=== PATIENT | male | born 1995 | race Caucasian/White ===

== ENCOUNTER 2017-05-31 18:45 | Emergency (ER) | payer OTHER ==
--- NOTE | 2017-05-31 19:13 | PDOC ---
History of Present Illness - General History Source: Patient Exam Limitations: No Limitations - History of Present Illness Initial Comments: 05/31/17 20:01 Patient is a 21 year old male with no significant past medical history who present to the ED with complaints of dysuria that began yesterday morning. Patient reports waking up yesterday and noticed dysuria that continued until today. Patient reports dysuria feels like sharp and is rated a 8/10 in intensity. He reports walking increases pain to tip of penis. Patient reports discharge of fluid from penis that he states is light yellow in coloration. He reports urinary secondary to dysuria, reporting he goes at least once per hour. Patient is sexually active and states his last sexual encounter was 5 days ago and was unprotected. Denies hematuria,diarrhea, constipation. Denies fever, chills. Denies nausea, vomiting. Denies any other symptoms. Allergies: None Social history: No smoking. Social drinker. No illicit drugs. Surgical history: None PMD: None Review of Symptoms. General: No fevers or chills, no weakness, no weight loss HEENT: No change in vision. No sore throat, No ear pain CardioVascular: No chest pain or shortness of breath Respiratory:No cough, or wheezing. Gastrointestinal: no nausea, vomiting, diarrhea or constipation, No rectal bleeding Genitourinary: +Dysuria. +Urinary frequency. No hematuria Musculoskeletal: No joint or muscle pain or swelling Neurologic: No headache, vertigo, dizziness or loss of consciousness Psychiatric: nor depression Skin: No rashes or easy bruising Endocrine: no increased thirst or abnormal weight change Allergic: no skin or latex allergy All other systems reviewed and normal Basic Physical Exam GENERAL: The patient is awake, alert, and fully oriented, in no acute distress. HEAD: Normal with no signs of trauma. EYES: Pupils equal, round and reactive to light, extraocular movements intact, sclera anicteric, conjunctiva clear. EXTREMITIES: Normal range of motion, no edema. GASTROINTESTINAL: +Testicle distended bilaterally. +Two small abrasions on tip of penis. +Small amount of blood and purulent leaking from tip of penis. Normal circumcised penis. Normal premaster reflex. No testicular tenderness or masses on palpation of the testicles. . Normal Lye. Bilateral non tender groin lymphadenopathy. NEUROLOGICAL: Normal speech, normal gait. PSYCH: Normal mood, normal affect. SKIN: Warm, Dry, normal turgor, no rashes or lesions noted. <Dariel Troncoso - Last Filed: 05/31/17 20:01> - General History Source: Patient Exam Limitations: No Limitations - History of Present Illness Initial Comments: 05/31/17 21:24 A portion of this note was documented by scribe services under my direction. I have reviewed the details of the note, within reason, and agree with the documentation. The case summary and management plan written by me. Assessment and plan: This is a 21-year-old male who comes in complaining of penile discomfort and dysuria. Patient on exam had penile discharge and some groin lymphadenopathy. Patient has presumptive STDs as he is sexually active with no protection. Patient had syphilis sent and HIV testing done. Patient was treated for chlamydia and gonorrhea. Post discharge patient's HIV test came back presumptive positive Patient was called and given an appointment with Dr. Ian Lopez for 9 AM Sunday, June 04 at the [facility]. The [facility] was also notified that the patient was given an appointment. A message was left at the [facility] regarding this patient and the appointment. <Cm Herrera I - Last Filed: 05/31/17 21:26> - General Chief Complaint: Urinary Problem Stated Complaint: PAINFUL URINATION Time Seen by Provider: 05/31/17 19:08 Past History <Dariel Troncoso - Last Filed: 05/31/17 20:01> - Immunization History Immunization Up to Date: Yes - Suicide/Smoking/Psychosocial Hx Smoking History: Never smoked Hx Alcohol Use: Yes (Occasional) Drug/Substance Use Hx: Yes (Occasional marijuana) Substance Use Type: Marijuana <Cm Herrera I - Last Filed: 05/31/17 21:26> - Past Medical History Allergies/Adverse Reactions: Allergies Allergy/AdvReac Type Severity Reaction Status Date / Time No Known Allergies Allergy Verified 05/31/17 19:00 Home Medications: Ambulatory Orders NK [No Known Home Medication] 05/31/17 *Physical Exam - Vital Signs Last Vital Signs Temp Pulse Resp BP Pulse Ox 99.7 F H 89 15 150/92 100 05/31/17 18:51 05/31/17 18:51 05/31/17 18:51 05/31/17 18:51 05/31/17 18:51 <Dariel Troncoso - Last Filed: 05/31/17 20:01> - Vital Signs Last Vital Signs Temp Pulse Resp BP Pulse Ox 99.7 F H 89 15 150/92 100 05/31/17 18:51 05/31/17 18:51 05/31/17 18:51 05/31/17 18:51 05/31/17 18:51 <Cm Herrera I - Last Filed: 05/31/17 21:26> ED Treatment Course - ADDITIONAL ORDERS Additional order review: Laboratory Results 05/31/17 19:20 Urine Color Yellow Urine Appearance Hazy Urine pH 6.0 Ur Specific [place] 1.020 Urine Protein Trace Urine Glucose (UA) Negative Urine Ketones Trace Urine Blood 2+ H Urine Nitrite Negative Urine Bilirubin Negative Urine Urobilinogen 0.2 Urine RBC 2-5 Urine WBC 15-30 Urine Bacteria Few - Medications Given in the ED: ED Medications Discontinued Medications Generic Name Dose Route Start Last Admin Trade Name Ras PRN Reason Stop Dose Admin Azithromycin 1 gm 05/31/17 19:44 05/31/17 19:54 Zithromax - PO 05/31/17 19:45 1 gm ONCE ONE Administration Ceftriaxone Sodium 500 mg 05/31/17 19:45 05/31/17 19:58 Rocephin - IM 05/31/17 19:46 500 mg ONCE ONE Administration <Dariel Troncoso - Last Filed: 05/31/17 20:01> *DC/Admit/Observation/Transfer - Attestations Scribe Attestion: 05/31/17 20:02 Documentation prepared by Dariel Troncoso, acting as medical donation professional for Cm Herrera MD/DO. <Dariel Troncoso - Last Filed: 05/31/17 20:01> - Discharge Dispostion Admit: No <Cm Herrera I - Last Filed: 05/31/17 21:26> Diagnosis at time of Disposition: Sexually transmitted disease (STD) - Discharge Dispostion Disposition: HOME Condition at time of disposition: Good - Patient Instructions Printed Discharge Instructions: Facts About Sexually Transmitted Infections Additional Instructions: Your symptoms are presumptively secondary to a sexually transmitted disease. You were treated for gonorrhea and chlamydia. You were tested for HIV and syphilis. It is important that you do not have sexual intercourse until you know the results of your tests. If any of your tests are positive you need to notify your partner or partners. It is important that you use protection. Return to the emergency department immediately with ANY new, persistent or worsening symptoms. Continue any medications as previously prescribed by your physician. You should follow up with your primary doctor as soon as possible regarding today's emergency department visit. . Please make sure your doctor reviews the results of your emergency evaluation. Thank you for coming to the Emergency Department today for your care. It was a pleasure to see you today. Please note that your evaluation is INCOMPLETE until you follow-up with your doctor.
[2017-05-31 19:16] VITALS: BP 150/92; PULSE 89; TEMP 99.7; BMI 24.7
[2017-05-31 19:34] LABS: URINE BILIRUBIN Negative (NEGATIVE); URINE GLUCOSE (UA) Negative (NEGATIVE); URINE KETONE Trace (NEGATIVE); URINE NITRITE Negative (NEGATIVE); URINE PROTEIN Trace (NEGATIVE); URINE UROBILINOGEN 0.2 (0.2-1.0)
[2017-05-31 19:39] LABS: URINE APPEARANCE HAZY; URINE BLOOD 2+ (NEGATIVE); URINE COLOR YELLOW; URINE LEUK ESTERASE 2+ (NEGATIVE)
[2017-05-31] MEDS ORDERED: AZITHROMYCIN 1 GM PACKET PO ONE (19:44)
[2017-05-31] MEDS ORDERED: AZITHROMYCIN 1 GM PACKET ONE (19:47)
[2017-05-31 19:58] LABS: URINE BACTERIA FEW /hpf (NEGATIVE); URINE WBC 15-30 (3-5)
[2017-05-31 21:08] LABS: HIV 1 & 2 AB PRELIMINARY POSITIVE; HIV 1 AGp24 NEGATIVE
== END 2017-05-31 20:08 | disposition home or self-care (01) ==
LOC: FER 18:45
DX: A64 Unspecified sexually transmitted disease (principal)
CPT/HCPCS: 36415; 81003; 81015; 86593; 87086; 87389; 87491; 87591; 99282-25

== ENCOUNTER 2017-07-09 19:37 | Emergency (ER) | payer OTHER ==
--- NOTE | 2017-07-09 20:09 | PDOC ---
History of Present Illness <Ttaum Lopez - Last Filed: 07/09/17 20:48> - General History Source: Patient Exam Limitations: No Limitations - History of Present Illness Initial Comments: 07/09/17 22:05 The patient is a 21 year old male, with a significant past medical history of HIV, who presents to the emergency department for elevated liver enzymes. Patient states that he was newly diagnosed for HIV about a month and a half ago. He started a new medication called Genya for his newly diagnosed HIV. His PCP reffered him to the ER after elevated liver enzyme levels. He denies experiencing any current pain. He states he is a social drinker but hasnt had alcohol since he began his medication. He is active and works out a lot. He states that he takes vitamin supplements and pre-workout but nothing new beside his HIV medication. He denies any recent fevers, chills, headache or dizziness. He denies any recent nausea, vomit, diarrhea or constipation. He denies any recent chest pain or shortness of breath. Allergies: NKA Past surgical history: None reported. Social History: Nonsmoker. Social drinker. Denies recreational drug use. Primary Care Physician: Missy Sanchez <Jeronimo Figueroa - Last Filed: 07/10/17 05:35> - General Chief Complaint: Revisit, Lab Variance Stated Complaint: LIVER ENZYMES ARE HIGH Time Seen by Provider: 07/09/17 19:45 Past History <Tatum Lopez - Last Filed: 07/09/17 20:48> - Past Medical History Asthma: No Cardiac Disorders: Yes (irregular heart rhythm - high school, never diagnosed) Diabetes: No HTN: No Seizures: No Other medical history: HIV - Immunization History Immunization Up to Date: Yes - Suicide/Smoking/Psychosocial Hx Smoking History: Never smoked Have you smoked in the past 12 months: No Information on smoking cessation initiated: No Hx Alcohol Use: No Drug/Substance Use Hx: No Substance Use Type: None, Marijuana <Jeronimo Figueroa - Last Filed: 07/10/17 05:35> - Past Medical History Allergies/Adverse Reactions: Allergies Allergy/AdvReac Type Severity Reaction Status Date / Time No Known Allergies Allergy Verified 07/09/17 19:41 Home Medications: Ambulatory Orders 5htp 1 cap PO DAILY 06/07/17 Lycopene/Lut Xt/Fruit Extracts [Fruit & Vegetable Daily Sftgel] 4 each PO DAILY 06/07/17 Magnesium 2 tab PO DAILY 06/07/17 Ashwagandha 2 cap PO DAILY 06/11/17 Rhodiola Rosea 1 cap PO DAILY 06/11/17 Elviteg/Cob/Emtri/Tenof Alafen [Genvoya Tablet] 1 each PO DAILY #30 tablet 07/09 Review of Systems - Review of Systems Able to Perform ROS?: Yes Comments:: 07/09/17 22:05 CONSTITUTIONAL: No reported: Fever, Chills, Diaphoresis, Generalized Weakness, Malaise, Loss of Appetite HEENT: No reported: Rhinorrhea, Nasal Congestion, Throat Pain, Throat Swelling, Difficulty Swallowing, Mouth Swelling, Ear Pain, Eye Pain, Visual Changes CARDIOVASCULAR: No reported: Chest Pain, Syncope, Palpitations, Irregular Heart Rate, Lightheadedness, Peripheral Edema RESPIRATORY: No reported: Cough, Shortness of Breath, SOB with Exertion, Orthopnea, Wheezing , Stridor, Hemoptysis GASTROINTESTINAL: No reported: Abdominal pain, Abdominal Distension, Nausea, Vomiting, Diarrhea, Constipation, Melena, Hematochezia GENITOURINARY: No reported: Dysuria, Frequency, Urgency, Hesitancy, Flank Pain, Genital Pain MUSCULOSKELETAL: No reported: Myalgia, Arthralgia, Joint Swelling, Back pain, Neck Pain SKIN: No reported: Rash, Itching, Pallor HEMATOLOGIC/IMMUNOLOGIC: Reported: recent HIV diagnosis No reported: Easy Bleeding, Easy Bruising, Lymphadenopathy, Frequent infections ENDOCRINE: No reported: Unexplained Weight Gain, Unexplained Weight Loss, Heat Intolerance , Cold Intolerance NEUROLOGIC: No reported: Headache, Focal Weakness, Paresthesias, Vertigo, Lightheadedness, Unsteady Gait, Seizure, Mental Status Changes, Incontinence PSYCHIATRIC: No reported: Anxiety, Depression <Jeronimo Figueroa - Last Filed: 07/10/17 05:35> *Physical Exam - Vital Signs Last Vital Signs Temp Pulse Resp BP Pulse Ox 98 F 98 H 16 149/82 100 07/09/17 19:48 07/09/17 19:48 07/09/17 19:48 07/09/17 19:48 07/09/17 19:48 <Tatum Lopez - Last Filed: 07/09/17 20:48> - Vital Signs Last Vital Signs Temp Pulse Resp BP Pulse Ox 98 F 98 H 16 149/82 100 07/09/17 19:48 07/09/17 19:48 07/09/17 19:48 07/09/17 19:48 07/09/17 19:48 - Physical Exam Comments: 07/09/17 22:05 GENERAL: The patient is awake, alert, and fully oriented, Nontoxic - in no acute distress. HEAD: Normocephalic, atraumatic. EYES: extraocular movements intact, sclera anicteric, conjunctiva clear. ENT: Normal voice, Moist mucous membranes. NECK: Normal range of motion, supple LUNGS: Breath sounds equal, clear to auscultation bilaterally. No wheezes, no rhonchi, no rales. HEART: Regular rate and rhythm, normal S1 and S2 without murmur, rub or gallop. ABDOMEN: Soft, nontender, normoactive bowel sounds. No guarding, no rebound. . No CVA tenderness EXTREMITIES: Normal range of motion, no edema. No clubbing or cyanosis. No cords, erythema, or tenderness. NEUROLOGICAL: No facial assymetry, Normal speech, PSYCH: Normal mood, normal affect. SKIN: Warm, Dry, normal turgor, <Jeronimo Figueroa - Last Filed: 07/10/17 05:35> ED Treatment Course - LABORATORY CBC & Chemistry Diagram: 07/09/17 20:05 07/09/17 20:05 - ADDITIONAL ORDERS Additional order review: Laboratory Results 07/09/17 20:05 Direct Bilirubin 0.2 07/09/17 20:05 RBC 5.28 MCV 86.9 MCHC 34.6 RDW 12.6 MPV 7.7 Neutrophils % 64.2 Lymphocytes % 25.7 Monocytes % 8.3 Eosinophils % 1.1 Basophils % 0.7 <Tatum Lopez - Last Filed: 07/09/17 20:48> - LABORATORY CBC & Chemistry Diagram: 07/09/17 20:05 07/09/17 20:05 <Jeronimo Figueroa - Last Filed: 07/10/17 05:35> Medical Decision Making - Medical Decision Making 07/09/17 20:17 21y M hx of newly diagnosed HIV sent to the ED for evaluation of elevated liver enzymes. The pt notes he is on genvoya but denies fahad on any other medications or supplements (takes a few OTC supplements but nothing new, has been on htem a few years). Denies abd pain, n/v, f/c, back pain, muscle aches. will repeat his LFTs, pt notes his ID doctor will follow the LFTs and was going to call him tmorrow A portion of this note was documented by scribe services under my direction. I have reviewed the details of the note, within reason, and agree with the documentation with the following case summary and management plan written by me 07/09/17 22:17 lfts reviewed slightly improved from earlier pt asypmtmatic case dw dr. azul - requested hepattis panel and to stop taking his genvoya for now will have him fu with BAIRON Sanchez as outpatient tomorrow I discussed the physical exam findings, ancillary test results and final diagnoses with the patient. I answered all of the patient's questions. The patient was satisfied with the care received and felt comfortable with the discharge plan and treatment plan. The patient will call their primary care physician within 24 hours to arrange follow-up and will return to the Emergency Department with any new, persistent or worsening symptoms. <Jeronimo Figueroa - Last Filed: 07/10/17 05:35> *DC/Admit/Observation/Transfer - Attestations Scribe Attestion: 07/09/17 20:48 Documentation prepared by Tatum Lopez, acting as medical office supervisor for Jeronimo Figueroa MD. <Tatum Lopez - Last Filed: 07/09/17 20:48> - Discharge Dispostion Admit: No <Jeronimo Figueroa - Last Filed: 07/10/17 05:35> Diagnosis at time of Disposition: Elevated liver enzymes - Discharge Dispostion Disposition: HOME Condition at time of disposition: Stable - Referrals Referrals: Missy Sanchez NP [Nurse Practitioner] - - Patient Instructions Printed Discharge Instructions: DI for HIV Additional Instructions: Return to the emergency department immediately with ANY new, persistent or worsening symptoms including any fever, chills, nausea/vomiting, abdominal pain , yellowish tinge to your skin. Stop taking the Genvoya until you follow up with Missy Sanchez. You had elevated liver enzymes. Please follow up with BAIRON Sanchez tomorrow. You MUST call and follow up with your doctor tomorrow for further evaluation of your symptoms. Results were discussed with you. Please make sure your doctor reviews the results of your emergency evaluation. Print Language: ALBANIAN
[2017-07-09 20:23] LABS: BASOPHIL 0.7 % (0-2.0); EOSINOPHIL 1.1 % (0-4.5); MCH 30.1 pg (25.7-33.7); MCHC 34.6 g/dl (32.0-35.9); MEAN CELL VOLUME 86.9 fl (80-96); MEAN PLT VOLUME 7.7 fl (7.5-11.1); NEUTROPHILS 64.2 % (42.8-82.8); PLATELET COUNT 257 K/MM3 (134-434); RDW 12.6 % (11.9-15.9); WHITE BLOOD COUNT 9.9 K/mm3 (4.0-10.8)
[2017-07-09 21:05] VITALS: BP 149/82; PULSE 98; TEMP 98; BMI 24.5
[2017-07-09 21:35] LABS: ALBUMIN 4.5 g/dl (3.5-5.0); ALK PHOS 54 U/L (32-92); ANION GAP 9 (8-16); BILIRUBIN,TOTAL 0.4 mg/dl (0.2-1.0); CALCIUM 9.6 mg/dl (8.4-10.2); CO2 23 mmol/L (22-28); CREATININE 0.9 mg/dl (0.6-1.3); GLUCOSE,RANDOM 112 mg/dl (74-106); SGPT/ALT 216 U/L (10-40); TOT PROT 7.4 g/dl (6.4-8.3)
[2017-07-09 21:53] LABS: SGOT/AST 620 U/L (10-42)
== END 2017-07-09 22:17 | disposition home or self-care (01) ==
LOC: FER 19:37
DX: R94.5 Abnormal results of liver function studies (principal); Z21 Asymptomatic human immunodeficiency virus [HIV] infection status
CPT/HCPCS: 36415; 80053; 80074; 82248; 85025; 99281-25

== ENCOUNTER 2018-06-08 12:08 | Emergency (ER) | payer OTHER ==
[2018-06-08] MEDS ORDERED: SODIUM CHLORIDE 1,000 ML IV STA (12:26)
[2018-06-08 12:46] VITALS: BP 139/69; PULSE 69; TEMP 98.4; BMI 26.3
[2018-06-08 13:34] LABS: ALBUMIN 4.5 g/dl (3.5-5.0); ALK PHOS 58 U/L (32-92); ANION GAP 8 MMOL/L (8-16); BASO % 0.3 % (0-2.0); BILIRUBIN,TOTAL 0.9 mg/dl (0.2-1.0); BLOOD UREA NITROGEN 26 mg/dl (7-18); CALCIUM 9.3 mg/dl (8.4-10.2); CHLORIDE 103 mmol/L (98-107); CO2 26 mmol/L (22-28); CREATININE 0.8 mg/dl (0.6-1.3); EOS % 1.1 % (0-4.5); GLUCOSE,RANDOM 99 mg/dl (74-106); HEMOGLOBIN 16.1 GM/dl (11.7-16.9); LYMPH % 23.4 % (8-40); MCH 31.5 pg (25.7-33.7); MCHC 33.6 g/dl (32.0-35.9); MEAN CELL VOLUME 93.7 fl (80-96); MEAN PLT VOLUME 7.7 fl (7.5-11.1); MONO % 8.9 % (3.8-10.2); NEUT % 66.3 % (42.8-82.8); PLATELET COUNT 291 K/MM3 (134-434); POTASSIUM 4.5 mmol/L (3.5-5.1); RBC 5.13 M/mm3 (4.00-5.60); RDW 11.8 % (11.9-15.9); SGOT/AST 28 U/L (10-42); SGPT/ALT 22 U/L (10-40); SODIUM 137 mmol/L (136-145); TOT PROT 7.4 g/dl (6.4-8.3); WHITE BLOOD COUNT 10.4 K/mm3 (4.0-10.8)
--- NOTE | 2018-06-08 13:39 | PDOC ---
History of Present Illness - General Chief Complaint: Diarrhea Stated Complaint: DIARRHEA Time Seen by Provider: 06/08/18 12:11 History Source: Patient Exam Limitations: No Limitations - History of Present Illness Initial Comments: 06/08/18 13:33 CHIEF COMPLAINT: Diarrhea HISTORY OF PRESENT ILLNESS: 22-year-old male with history of well-controlled HIV presents complaining of diarrhea times one month. Patient has been on a stable antiretroviral regimen for almost a year. His antiviral medications have the side effect of diarrhea, however, over the past month he has as many as 8 soft stools per day. There is no fever and no chills. There is no weight change. He does at times pass undigested food. He did have vomiting once several days ago. There has been no recurrence. In terms of his HIV, he takes his medication at 9 PM every day based on an alarm that goes off on his Smart phone. He has been fully compliant and his viral load has been continuously undetectable. His CD4 count was in the 800 range this summer. His HIV doctor told him that he does not need to get checked more than once every 4 months because of his perfect compliance and undetectable viral load. REVIEW OF SYSTEMS: GENERAL/CONSTITUTIONAL: No fever or chills. No weakness. No weight change. HEAD, EYES, EARS, NOSE AND THROAT: No change in vision. No ear pain or discharge. No sore throat. CARDIOVASCULAR: No chest pain or shortness of breath. RESPIRATORY: No cough, wheezing, or hemoptysis. GASTROINTESTINAL: Rare episodes of vomiting. Chronic diarrhea, see history of present illness. No rectal bleeding. GENITOURINARY: No dysuria, frequency, or change in urination. MUSCULOSKELETAL: No joint or muscle swelling or pain. No neck or back pain. SKIN AND BREASTS: No rash or easy bruising. NEUROLOGIC: No headache, vertigo, loss of consciousness, or loss of sensation. PSYCHIATRIC: No depression or anxiety. ENDOCRINE: No increased thirst. No abnormal weight change. HEMATOLOGIC/LYMPHATIC: No anemia, easy bleeding, or history of blood clots. ALLERGIC/IMMUNOLOGIC: No hives or skin allergy. No latex allergy. 06/08/18 14:24 Weight has been rising and is stable at 173 pounds. Past History - Past Medical History Allergies/Adverse Reactions: Allergies Allergy/AdvReac Type Severity Reaction Status Date / Time No Known Allergies Allergy Verified 06/08/18 12:09 Home Medications: Ambulatory Orders Emtricitab/Rilpiviri/Tenof Ala [Odefsey Tablet] 1 each PO DAILY #30 tablet 04/04 Fluoxetine HCl [Prozac] 40 mg PO AM #30 cap 04/11/18 Loperamide HCl [Imodium -] 4 mg PO TID PRN #80 capsule 06/08/18 Asthma: No Cardiac Disorders: Yes (irregular heart rhythm - high school, never diagnosed) COPD: No Diabetes: No HTN: No Seizures: No Other medical history: HIV POSITIVE - Immunization History Immunization Up to Date: Yes - Suicide/Smoking/Psychosocial Hx Smoking History: Never smoked Have you smoked in the past 12 months: No Information on smoking cessation initiated: No Hx Alcohol Use: Yes (admits to alcohol use) Drug/Substance Use Hx: Yes (MARIJUANA) Substance Use Type: None Hx Substance Use Treatment: No *Physical Exam - Vital Signs Last Vital Signs Temp Pulse Resp BP Pulse Ox 98.4 F 69 20 139/69 100 06/08/18 12:08 06/08/18 12:08 06/08/18 12:08 06/08/18 12:08 06/08/18 12:08 - Physical Exam Comments: 06/08/18 13:39 GENERAL: The patient is awake, alert, and fully oriented, in no acute distress. HEAD: Normal with no signs of trauma. EYES: Pupils equal, round and reactive to light, extraocular movements intact, sclera anicteric, conjunctiva clear. ENT: Ears normal, nares patent, oropharynx clear without exudates. Moist mucous membranes. NECK: Normal range of motion, supple without lymphadenopathy, JVD, or masses. LUNGS: Breath sounds equal, clear to auscultation bilaterally. No wheezes, and no crackles. HEART: Regular rate and rhythm, normal S1 and S2 without murmur, rub or gallop. ABDOMEN: Soft, nontender, normoactive bowel sounds. No guarding, no rebound. No masses. No Alex sign. No McBurney's tenderness. No lower abdominal tenderness. No distention. EXTREMITIES: Normal range of motion, no edema. No clubbing or cyanosis. No cords, erythema, or tenderness. NEUROLOGICAL: Cranial nerves II through XII grossly intact. Normal speech, normal gait. PSYCH: Normal mood, normal affect. SKIN: Warm, Dry, normal turgor, no rashes or lesions noted. ED Treatment Course - LABORATORY CBC & Chemistry Diagram: 06/08/18 12:48 06/08/18 12:48 - Medications Given in the ED: ED Medications Discontinued Medications Generic Name Dose Route Start Last Admin Trade Name Ras PRN Reason Stop Dose Admin Sodium Chloride 1,000 mls @ 1,000 mls/hr 06/08/18 12:26 06/08/18 13:07 Normal Saline - IV 06/08/18 13:25 1,000 mls/hr ASDIR STA Administration Medical Decision Making - Medical Decision Making 06/08/18 14:14 Patient is a 22-year-old man, with HIV well controlled on antiviral viral medication. He presents now with chronic diarrhea up to 8 times a day over the past month. It is well known that his HIV medication commonly causes diarrhea. On examination, his abdomen is soft and nontender, totally benign. Laboratory studies reviewed and essentially unremarkable. His BUN is elevated, but he takes protein supplements for his gym workouts. This is the most likely cause of the elevated BUNs as he appears well hydrated. Patient will continue his HIV medication. He will be started on loperamide 4 mg 3 times a day with meals. He has been advised to follow-up with the [facility] where he receives his ongoing care. Laboratory Results - last 24 hr 06/08/18 06/08/18 12:48 12:48 WBC 10.4 RBC 5.13 Hgb 16.1 Hct 48.0 MCV 93.7 MCH 31.5 MCHC 33.6 RDW 11.8 L Plt Count 291 MPV 7.7 Absolute Neuts (auto) 7.0 Neutrophils % 66.3 Lymphocytes % 23.4 D Monocytes % 8.9 Eosinophils % 1.1 Basophils % 0.3 Sodium 137 Potassium 4.5 Chloride 103 Carbon Dioxide 26 Anion Gap 8 BUN 26 H Creatinine 0.8 Creat Clearance w eGFR > 60 Random Glucose 99 Calcium 9.3 Total Bilirubin 0.9 AST 28 ALT 22 D Alkaline Phosphatase 58 Total Protein 7.4 Albumin 4.5 06/08/18 14:23 *DC/Admit/Observation/Transfer Diagnosis at time of Disposition: Diarrhea due to drug - Discharge Dispostion Disposition: HOME Condition at time of disposition: Stable Decision to Admit order: No - Prescriptions Prescriptions: Loperamide HCl [Imodium -] 4 mg PO TID PRN #80 capsule PRN Reason: Diarrhea - Referrals - Patient Instructions Printed Discharge Instructions: Diarrhea (Alternative Therapy) Additional Instructions: Today you were evaluated for diarrhea. The diarrhea is likely caused by your medication. Continue to take your medication, but you may also take loperamide 4 mg (2 tablets of 2 mg each) 3 times a day with meals. Follow-up with your doctor at the [facility]. Return to the emergency department for any severe or progressive symptoms. - Post Discharge Activity
== END 2018-06-08 14:41 | disposition home or self-care (01) ==
LOC: FER 12:08
PROC: 3E0337Z Introduction of Electrolytic and Water Balance Substance into Peripheral Vein, Percutaneous Approach (ICD-10-PCS; principal; 2018-06-08)
DX: K52.1 Toxic gastroenteritis and colitis (principal); Z21 Asymptomatic human immunodeficiency virus [HIV] infection status
CPT/HCPCS: 36415; 80053; 85025; 96360; 99282-25; J7030

== ENCOUNTER 2019-01-07 15:31 | Emergency (ER) | payer OTHER ==
--- NOTE | 2019-01-07 15:35 | PDOC ---
Rapid Medical Evaluation Chief Complaint: Wound Time Seen by Provider: 01/07/19 15:33 Medical Evaluation: Allergies Allergy/AdvReac Type Severity Reaction Status Date / Time No Known Allergies Allergy Verified 06/08/18 12:09 01/07/19 15:34 I have performed a brief in person evaluation at triage on this patient. CC: wound HPI: Pt states he was running a race and he "scraped my leg on a rope" during a race and he now has a wound on the right LE. Pt denies hx of DM, denies fever. PE: Skin: 6 cm x 1.5 cm abrasion to the posterior aspect of the right LE Lungs: clear Heart: RRR MS: Moves all extremities without difficulty Neuro: Alert and oriented Psych: Appropriate affect Pt will proceed to [facility] for further evaluation. Discharge Disposition - Diagnosis Wound cellulitis - Referrals - Patient Instructions - Post Discharge Activity
[2019-01-07 15:36] VITALS: BP 146/87; PULSE 71; TEMP 98.1; BMI 25.5
--- NOTE | 2019-01-07 16:01 | PDOC ---
History of Present Illness - General Chief Complaint: Wound Stated Complaint: SENT BY PCP Time Seen by Provider: 01/07/19 15:33 - History of Present Illness Initial Comments: 01/07/19 15:57 23-year-old male without comorbidities since for evaluation of a wound on his right ankle which is been there for about a week. He is concerned about infection. He has no systemic symptoms. Past History - Past Medical History Allergies/Adverse Reactions: Allergies Allergy/AdvReac Type Severity Reaction Status Date / Time No Known Allergies Allergy Verified 01/07/19 15:34 Home Medications: Ambulatory Orders Fluoxetine HCl [Prozac] 40 mg PO AM #30 cap 04/11/18 Loperamide HCl [Imodium -] 4 mg PO TID PRN #80 capsule 06/08/18 Electrolyte,Oral [Pedialyte -] 118 ml PO ONCE #2 bottle 06/13/18 metroNIDAZOLE [Metronidazole] 500 mg PO BID #14 tablet 06/19/18 Emtricitab/Rilpiviri/Tenof Ala [Odefsey Tablet] 1 each PO DAILY #30 tablet 08/21 Emtricitab/Rilpiviri/Tenof Ala [Odefsey Tablet] 1 each PO DAILY #90 tablet 08/27 Valacyclovir HCl [Valtrex -] 500 mg PO BID #14 tablet 09/09/18 Asthma: No Cardiac Disorders: Yes (irregular heart rhythm - high school, never diagnosed) COPD: No Diabetes: No HTN: No Seizures: No - Immunization History Immunization Up to Date: Yes - Suicide/Smoking/Psychosocial Hx Smoking History: Never smoked Have you smoked in the past 12 months: No Hx Alcohol Use: Yes Drug/Substance Use Hx: Yes (MARIJUANA) Substance Use Type: None Hx Substance Use Treatment: No Review of Systems - Review of Systems Constitutional: No: Fever Integumentary: Yes: See HPI *Physical Exam - Vital Signs Last Vital Signs Temp Pulse Resp BP Pulse Ox 98.1 F 71 18 146/87 100 01/07/19 15:34 01/07/19 15:34 01/07/19 15:34 01/07/19 15:34 01/07/19 15:34 - Physical Exam Comments: 01/07/19 15:58 There is about a 4 cm oval wound with formed eschar with normal surrounding skin color and temperature without induration or fluctuance on the posterior medial aspect of the right ankle there are no gross sensorimotor deficits. Medical Decision Making - Medical Decision Making 01/07/19 15:59 This is a healing wound which does not require antibiotic therapy. I recommended washing with soap and water and leave in the area open to air and monitoring the skin around the wound for cellulitic changes. It's healing nicely and granulating well. *DC/Admit/Observation/Transfer Diagnosis at time of Disposition: Superficial abrasion Diagnosis at time of Disposition: (Ruled Out): Wound cellulitis - Discharge Dispostion Disposition: HOME Condition at time of disposition: Stable Decision to Admit order: No - Referrals Referrals: Reji Retana MD [Staff Physician] - - Patient Instructions Printed Discharge Instructions: DI for Abrasion Additional Instructions: Please keep the area clean and wash with soap and water. Return to the emergency room if there is any redness or swelling or pain away from the area of the wound. Or if you develop any fevers. Do not put any Neosporin or occlusive dressings on the wound. If you're working out and being active please cover the wound with dry sterile dressing. Return to the emergency room if problems develop otherwise follow-up with general surgery for wound healing in one to 2 days for further evaluation should you feel he needed. - Post Discharge Activity
== END 2019-01-07 16:03 | disposition home or self-care (01) ==
LOC: JERFT 15:31
DX: S90.511A Abrasion, right ankle, initial encounter (principal); W22.8XXA Striking against or struck by other objects, initial encounter; Y93.02 Activity, running; Y92.488 Other paved roadways as the place of occurrence of the external cause; Y99.8 Other external cause status
CPT/HCPCS: 99281-25